=== PATIENT | male | born 1950 | race Caucasian/White ===

== ENCOUNTER 2020-11-04 17:29 | Emergency (ER) | payer MEDICARE, BC ==
--- NOTE | 2020-11-04 18:34 | EDM.PDOC ---
ED HPI GENERAL MEDICAL PROBLEM - General Chief Complaint: Laceration Stated Complaint: fish hook in right hand Time Seen by Provider: 11/04/20 17:35 - History of Present Illness INITIAL COMMENTS - FREE TEXT/NARRATIVE: Pt comes in with a fish hook in his Rt hand. He states the bleeding was minimal, he is not on any blood thinners. ED ROS GENERAL - Review of Systems Review Of Systems: Comprehensive ROS is negative, except as noted in HPI. Skin: Reports: Other (Fish hook in palm of Rt hand. 1 hook of a treble hook buried to the base of the shaft. The tip is pushing against the skin, tenting it.) ED EXAM, SKIN/RASH Exam: See Below ED SKIN PROCEDURES - Laceration/Wound Repair Right Ventral Hand Appearance: Subcutaneous Local Anesthesia - Lidocaine (Xylocaine): 1% Plain Local Anesthetic Volume: 2cc Skin Prep: Chlorhexidine (Hibiciens) Course - Vital Signs Last Recorded V/S: Last Vital Signs Temp 97 F 11/04/20 18:19 Pulse 86 11/04/20 18:19 Resp 16 11/04/20 18:19 BP 150/97 H 11/04/20 18:19 Pulse Ox 97 11/04/20 18:19 - Re-Assessments/Exams Free Text/Narrative Re-Assessment/Exam: 11/04/20 18:31 After giving the Lidocaine I removed the other hooks and lure. Then using 2 pairs of pliers I pushed the hook thru the skin using the 2nd pliers to push the skin back. Then while holding the hook there Nursing staff cut off the tip just below the corinna. I was then able to remove the hook pulling it backward. Pt tolerated the procedure well. He is current on his Tetanus. Nursing staff cleansed the area again, and put on Abx ointment and band-aid. 11/04/20 18:34 Departure - Departure Time of Disposition: 18:00 Disposition: Home, Self-Care 01 Condition: Good Clinical Impression: Fish hook injury of hand Qualifiers: Encounter type: initial encounter Laterality: right Qualified Code(s): S69.91XA - Unspecified injury of right wrist, hand and finger(s), initial encounter - Discharge Information *PRESCRIPTION DRUG MONITORING PROGRAM REVIEWED*: No *COPY OF PRESCRIPTION DRUG MONITORING REPORT IN PATIENT MERLINE: No Instructions: Hand or Foot Foreign Body, Adult Forms: ED Department Discharge Care Plan Goals: apply topical antibiotic ointment and keep clean and dry. Monitor for symptoms of infection. Sepsis Event Note (ED) - Evaluation Sepsis Screening Result: No Definite Risk - Focused Exam Vital Signs: Vital Signs Temp Pulse Resp BP Pulse Ox 11/04/20 18:19 97 F 86 16 150/97 H 97
== END 2020-11-04 18:00 | disposition home or self-care (01) ==
LOC: LB.ED 17:29
DX: S61.421A Laceration with foreign body of right hand, initial encounter (principal); W45.8XXA Other foreign body or object entering through skin, initial encounter; W26.8XXA Contact with other sharp object(s), not elsewhere classified, initial encounter
CPT/HCPCS: 99282